=== PATIENT | female | born 1975 | race Caucasian/White ===

== ENCOUNTER 2017-07-10 23:43 | Emergency (ER) | payer MEDICAID ==
[~2017-07-10] VITALS: Ht 160 cm; Wt 77.1 kg
[2017-07-10 23:50] VITALS: BP_SYST 139
[2017-07-11] MEDS ORDERED: DIPHENHYDRAMINE INJ 50 MG/ML VIAL IM ONE
[2017-07-11] MEDS ORDERED: PROCHLORPERAZINE EDISYLATE 10 MG/2 ML VIAL IM ONE
[2017-07-11 01:47] VITALS: BP_SYST 125
== END 2017-07-11 01:54 | disposition home or self-care (01) ==
LOC: SED 23:43
DX: R51 Headache (principal); R11.2 Nausea with vomiting, unspecified; H53.149 Visual discomfort, unspecified
CPT/HCPCS: 70450; 81025; 96372; 99284; J0780; J1200

== ENCOUNTER 2019-05-26 02:56 | Emergency (ER) | payer MEDICAID ==
[~2019-05-26] VITALS: Ht 165.1 cm; Wt 72.6 kg
[2019-05-26 03:00] VITALS: BP_SYST 159
[2019-05-26] MEDS: DEXAMETHASONE SOD PHOSPHATE 10 MG/ML VIAL IM ONE (03:24)
[2019-05-26 03:37] VITALS: BP_SYST 159
== END 2019-05-26 03:37 | disposition home or self-care (01) ==
LOC: SED 02:56
DX: S80.861A Insect bite (nonvenomous), right lower leg, initial encounter (principal); L03.115 Cellulitis of right lower limb; W57.XXXA Bitten or stung by nonvenomous insect and other nonvenomous arthropods, initial encounter; Y93.89 Activity, other specified; Y92.89 Other specified places as the place of occurrence of the external cause; Y99.8 Other external cause status
CPT/HCPCS: 96372; 99283; J1100

== ENCOUNTER 2019-08-11 07:58 | Emergency (ER) | payer MEDICAID ==
[~2019-08-11] VITALS: Ht 165.1 cm; Wt 74.8 kg
[2019-08-11 08:00] VITALS: BP_SYST 120
[2019-08-11] MEDS ORDERED: PROCHLORPERAZINE EDISYLATE 10 MG/2 ML VIAL IM ONE (09:00)
[2019-08-11] MEDS ORDERED: KETOROLAC TROMETHAMINE 60 MG/2 ML VIAL IM ONE (09:00)
[2019-08-11 09:57] VITALS: BP_SYST 119
== END 2019-08-11 09:57 | disposition home or self-care (01) ==
LOC: SED 07:58
DX: G44.209 Tension-type headache, unspecified, not intractable (principal); F41.9 Anxiety disorder, unspecified
CPT/HCPCS: 81025; 82962; 96372; 99283; J0780; J1885

== ENCOUNTER 2019-09-25 00:29 | Emergency (ER) | payer MEDICAID ==
[~2019-09-25] VITALS: Ht 165.1 cm; Wt 73.5 kg
[2019-09-25 00:45] VITALS: BP_SYST 126
--- NOTE | 2019-09-25 00:45 | NUR ---
Patient to ER bed 6 to gown for evaluation. Side rails up. Report received from LUZ MARIA Gee.
--- NOTE | 2019-09-25 00:48 | NUR ---
Patient complains of vaginal bleed intermittently for 3 months. Pt states she was taking control 4 months ago and states she stopped taking it. Pt noticed spotting and has increasing gotten worse over time. Pt is complaining of cramps and states she was anemic 5 years ago. NO other injuries/complaints per patient or noted.
--- NOTE | 2019-09-25 00:58 | NUR ---
ER Dr. Resendiz at bedside examining patient.
--- NOTE | 2019-09-25 01:18 | NUR ---
Patient given written and verbal discharge instructions and verbalizes understanding. ER MD discussed with patient the results and treatment provided. Patient in stable condition. ID arm band removed. Rx of Provera, Motrin and Cipro given. Patient educated on pain management and to follow up with PMD. Pain Scale 0. Opportunity for questions provided and answered. Medication side effect fact sheet provided.
[2019-09-25 01:20] VITALS: BP_SYST 126
== END 2019-09-25 01:18 | disposition home or self-care (01) ==
LOC: SED 00:29
DX: N39.0 Urinary tract infection, site not specified (principal); N93.8 Other specified abnormal uterine and vaginal bleeding
CPT/HCPCS: 81002; 81025; 99283

== ENCOUNTER 2020-05-22 11:28 | Emergency (ER) | payer MEDICAID ==
[~2020-05-22] VITALS: Ht 165.1 cm; Wt 85.3 kg
[2020-05-22 11:31] VITALS: BP_SYST 144
--- NOTE | 2020-05-22 11:36 | NUR ---
Patient triaged and placed in waiting room. VSS and patient appears in no acute distress at this time. Awaiting available bed, and MD notified of need for MSE.
[2020-05-22] MEDS ORDERED: LORazepam 1 MG TABLET PO ONE (14:00)
[2020-05-22] MEDS ORDERED: KETOROLAC TROMETHAMINE 60 MG/2 ML VIAL IM ONE (14:00)
[2020-05-22 14:07] LABS: BILIRUBIN,URINE NEGATIVE (NEGATIVE); CLARITY/URINE CLEAR (CLEAR); COLOR,URINE YELLOW (YELLOW); GLUCOSE,URINE NEGATIVE (NEGATIVE); KETONES,URINE NEGATIVE (NEGATIVE); LEUKOCYTE ESTERASE ,URINE NEGATIVE (NEGATIVE); NITRITE, URINE NEGATIVE (NEGATIVE); PROTEIN URINE NEGATIVE (NEGATIVE); UROBILINOGEN,URINE 0.2 (0.2-1.0)
[2020-05-22 14:24] LABS: BLOOD, URINE TRACE (NEGATIVE)
[2020-05-22 14:27] LABS: BACTERIA,URINE RARE /HPF (None Seen); WBC,URINE 0-3 /HPF (0-3)
--- NOTE | 2020-05-22 14:35 | NUR ---
Patient to ER bed H1 to gown for evaluation. Side rails up.
--- NOTE | 2020-05-22 14:36 | NUR ---
Pt brought by self , A&Ox4 , pt presents to ER with anxiety , headache and insomnia, skin pink and warm, cap refill <3, VSS, respirations even and unlabored.
--- NOTE | 2020-05-22 14:40 | NUR ---
Nicolasa Durham FLOWER [employer]IPPER at bedside speaking with patient
[2020-05-22 15:35] VITALS: BP_SYST 144
--- NOTE | 2020-05-22 15:36 | NUR ---
Patient given written and verbal discharge instructions and verbalizes understanding. ER MD discussed with patient the results and treatment provided. Patient in stable condition. ID arm band removed. Rx of Ativan and Tylenol given. Patient educated on pain management and to follow up with PMD. Pain Scale 2/10 tolerable for patient . Opportunity for questions provided and answered. Medication side effect fact sheet provided.
== END 2020-05-22 15:35 | disposition home or self-care (01) ==
LOC: SED 11:28
DX: R51 Headache (principal); F41.9 Anxiety disorder, unspecified; R03.0 Elevated blood-pressure reading, without diagnosis of hypertension
CPT/HCPCS: 81000; 81025; 93005; 96372; 99284; J1885

== ENCOUNTER 2020-08-18 20:48 | Emergency (ER) | payer MEDICAID ==
[~2020-08-18] VITALS: Ht 165.1 cm; Wt 83.9 kg
[2020-08-18 21:00] VITALS: BP_SYST 162
--- NOTE | 2020-08-18 21:00 | NUR ---
Patient to ER bed 6 to gown for evaluation. Side rails up. Report given to MARILUZ.
--- NOTE | 2020-08-18 21:02 | NUR ---
PT AA AND AMBULATORY C/O VAGINAL BLEEDING FOR THE PAST 2 MONTHS AND PELVIC PAIN 6/10 ON PAIN SCALE. PT REPORTS THAT BLEEDING WILL NOT SUBSIDE AND PAIN IN WORSENING.
--- NOTE | 2020-08-18 21:05 | NUR ---
ER Dr. HOLT at bedside examining patient.
[2020-08-18 21:39] LABS: BASOPHILS # (AUTO) 0.1 K/uL (0.0-0.2); BASOPHILS % (AUTO) 0.7 % (0.0-2.0); EOSINOPHILS # (AUTO) 0.1 K/uL (0.0-0.4); EOSINOPHILS % (AUTO) 0.7 % (0.0-4.0); HEMATOCRIT 38.5 % (36-48); HEMOGLOBIN 12.9 g/dL (12.0-16.0); LYMPHOCYTES # (AUTO) 2.8 K/uL (1.0-5.5); LYMPHOCYTES % (AUTO) 27.9 % (20.5-51.5); MEAN CORPUSCULAR HEMOGLOBIN 30 pg (27-31); MEAN CORPUSCULAR HGB CONC 34 % (32-36); MEAN CORPUSCULAR VOLUME 89 fL (79.0-98.0); MONOCYTES # (AUTO) 0.7 K/uL (0.0-1.0); MONOCYTES % (AUTO) 6.8 % (1.7-9.3); NEUTROPHILS # (AUTO) 6.5 K/uL (1.8-7.7); NEUTROPHILS % (AUTO) 63.9 % (40.0-70.0); PLATELET COUNT (AUTO) 310 K/uL (130-430); RED BLOOD CELL COUNT(AUTO) 4.35 MIL/uL (4.2-6.2); RED CELL DISTRIBUTION WIDTH 16.2 % (9.0-15.0); WHITE BLOOD COUNT (AUTO) 10.1 K/uL (4.8-10.8)
[2020-08-18 21:54] LABS: CALCIUM 8.1 mg/dL (8.4-11.0); CREATININE 0.89 mg/dL (0.55-1.30); POTASSIUM 4.1 mmol/L (3.5-5.1)
[2020-08-18 21:59] LABS: ALBUMIN 3.5 g/dL (3.4-4.8); TOTAL BILIRUBIN 0.2 mg/dL (0.0-1.0)
--- NOTE | 2020-08-18 22:00 | NUR ---
US TECH AT BEDSIDE.
[2020-08-18 22:36] VITALS: BP_SYST 162
--- NOTE | 2020-08-18 22:36 | NUR ---
Patient given written and verbal discharge instructions and verbalizes understanding. ER MD discussed with patient the results and treatment provided. Patient in stable condition. ID arm band removed. Rx of PROVERA given. Patient educated on pain management and to follow up with PMD. Opportunity for questions provided and answered. Medication side effect fact sheet provided.
== END 2020-08-18 22:36 | disposition home or self-care (01) ==
LOC: SED 20:48
DX: N93.8 Other specified abnormal uterine and vaginal bleeding (principal); I10 Essential (primary) hypertension
CPT/HCPCS: 36415; 76830-TC; 76857; 80053; 85025; 99284

== ENCOUNTER 2020-08-31 10:37 | Emergency (ER) | payer MEDICAID ==
[~2020-08-31] VITALS: Ht 165.1 cm; Wt 79.8 kg
[2020-08-31 11:03] VITALS: BP_SYST 110
--- NOTE | 2020-08-31 12:14 | NUR ---
Pt c/o vag bleeding x4 days. +Lower abd pain, lower back pain. Was told by PMD to come to ER for evaluation
--- NOTE | 2020-08-31 12:14 | NUR ---
ER Dr. Ayers examining patient in triage room.
--- NOTE | 2020-08-31 13:06 | NUR ---
Pt A&Ox4, VSS, respirations even and unlabored, cap refill <3.
[2020-08-31 13:15] LABS: BASOPHILS # (AUTO) 0.1 K/uL (0.0-0.2); BASOPHILS % (AUTO) 1.2 % (0.0-2.0); EOSINOPHILS # (AUTO) 0.1 K/uL (0.0-0.4); HEMATOCRIT 39.7 % (36-48); HEMOGLOBIN 13.3 g/dL (12.0-16.0); LYMPHOCYTES # (AUTO) 2.8 K/uL (1.0-5.5); LYMPHOCYTES % (AUTO) 33.1 % (20.5-51.5); MEAN CORPUSCULAR HEMOGLOBIN 30 pg (27-31); MEAN CORPUSCULAR HGB CONC 34 % (32-36); MEAN CORPUSCULAR VOLUME 89 fL (79.0-98.0); MONOCYTES # (AUTO) 0.5 K/uL (0.0-1.0); MONOCYTES % (AUTO) 5.9 % (1.7-9.3); NEUTROPHILS # (AUTO) 5.1 K/uL (1.8-7.7); NEUTROPHILS % (AUTO) 58.8 % (40.0-70.0); PLATELET COUNT (AUTO) 300 K/uL (130-430); RED BLOOD CELL COUNT(AUTO) 4.48 MIL/uL (4.2-6.2); RED CELL DISTRIBUTION WIDTH 16.5 % (9.0-15.0); WHITE BLOOD COUNT (AUTO) 8.6 K/uL (4.8-10.8)
[2020-08-31 14:12] VITALS: BP_SYST 110
--- NOTE | 2020-08-31 14:12 | NUR ---
Patient given written and verbal discharge instructions and verbalizes understanding. ER MD discussed with patient the results and treatment provided. Patient in stable condition. ID arm band removed. Rx of Provera given. Patient educated on pain management and to follow up with PMD. Pain Scale 0/10 . Opportunity for questions provided and answered. Medication side effect fact sheet provided.
== END 2020-08-31 14:12 | disposition home or self-care (01) ==
LOC: SED 10:37
DX: N94.6 Dysmenorrhea, unspecified (principal); I10 Essential (primary) hypertension
CPT/HCPCS: 36415; 81025; 84703; 85025; 99283

== ENCOUNTER 2020-10-27 18:23 | Emergency (ER) | payer MEDICAID ==
[~2020-10-27] VITALS: Ht 165.1 cm; Wt 85.7 kg
[2020-10-27 18:23] VITALS: BP_SYST 155
--- NOTE | 2020-10-27 18:39 | NUR ---
DR. BUCKNER IN TRIAGED EXAMINING PT
[2020-10-27] MEDS ORDERED: IBUPROFEN 600 MG TABLET PO ONE (18:45)
[2020-10-27] MEDS ORDERED: IBUPROFEN 600 MG TABLET ONE (18:47)
--- NOTE | 2020-10-27 19:58 | NUR ---
PT TO [place] [id number]
--- NOTE | 2020-10-27 19:59 | NUR ---
PT AAO AND AMBULATORY REPORTING LEFT MIDDLE FINGER DISCOMFORT. PAIN WAS INITIALLY 8/10 BUT IT HAS IMPROVED SINCE IBOPROFEN WAS ADMINISTERED. PT REPORTS PAIN NOW 5/10 ON PAIN SCALE. PT REPORTS THAT SHE INJURED HER FINGER IN [place] A FEW MONTHS AGO AND NOW SHE IS HAVING DIFFICULTY BENDING DIGIT.
[2020-10-27 20:07] VITALS: BP_SYST 155
--- NOTE | 2020-10-27 20:09 | NUR ---
Patient given written and verbal discharge instructions and verbalizes understanding. DR. SITA PETERSON MD discussed with patient the results and treatment provided. Patient in stable condition. ID arm band removed. Rx of given. Patient educated on pain management and to follow up with PMD. Pain Scale 2/10.Opportunity for questions provided and answered.
== END 2020-10-27 20:09 | disposition home or self-care (01) ==
LOC: SED 18:23
DX: M79.645 Pain in left finger(s) (principal); W26.0XXA Contact with knife, initial encounter; Y93.89 Activity, other specified; Y92.89 Other specified places as the place of occurrence of the external cause; Y99.8 Other external cause status
CPT/HCPCS: 73140-TC; 99283

== ENCOUNTER 2021-07-01 11:58 | Emergency (ER) | payer MEDICAID ==
[~2021-07-01] VITALS: Ht 165.1 cm; Wt 84.8 kg
[2021-07-01 11:59] VITALS: BP_SYST 146
--- NOTE | 2021-07-01 12:00 | NUR ---
Patient to ER bed 7 to gown for evaluation. Side rails up.
--- NOTE | 2021-07-01 12:05 | NUR ---
pt arrives from home w/ /co urinary frequency and burning. reports 5/10, sharp bladder pain
--- NOTE | 2021-07-01 12:10 | NUR ---
ER at bedside examining patient.
[2021-07-01 12:15] LABS: BILIRUBIN,URINE NEGATIVE (NEGATIVE); BLOOD, URINE 3+ (NEGATIVE); CLARITY/URINE TURBID (CLEAR); GLUCOSE,URINE NEGATIVE (NEGATIVE); KETONES,URINE NEGATIVE (NEGATIVE); LEUKOCYTE ESTERASE ,URINE 3+ (NEGATIVE); NITRITE, URINE POSITIVE (NEGATIVE); PH,URINE 6.5 (5.0-8.0); PROTEIN URINE 2+ (NEGATIVE)
[2021-07-01 12:23] LABS: COLOR,URINE AMBER (YELLOW)
[2021-07-01 12:26] LABS: BACTERIA,URINE MANY /HPF (None Seen); WBC,URINE >100 /HPF (0-3)
[2021-07-01] MEDS ORDERED: CEPH250C PO (12:53)
[2021-07-01 12:58] VITALS: BP_SYST 146
--- NOTE | 2021-07-01 12:59 | NUR ---
Patient given written and verbal discharge instructions and verbalizes understanding. ER MD discussed with patient the results and treatment provided. Patient in stable condition. ID arm band removed. Rx of KEFLEX given. Patient educated on pain management and to follow up with PMD. Pain Scale 3/10. Opportunity for questions provided and answered. Medication side effect fact sheet provided.
== END 2021-07-01 12:59 | disposition home or self-care (01) ==
LOC: SED 11:58
DX: N39.0 Urinary tract infection, site not specified (principal); I10 Essential (primary) hypertension; Z79.899 Other long term (current) drug therapy
CPT/HCPCS: 81000; 81025; 87086; 99283

== ENCOUNTER 2021-08-27 15:23 | Emergency (ER) | payer MEDICAID ==
[~2021-08-27] VITALS: Ht 165.1 cm; Wt 86.6 kg
[~2021-08-27 15:23] MED LIST: CEPH250C PO
[2021-08-27 15:33] VITALS: BP_SYST 139
[2021-08-27] MEDS ORDERED: KETOROLAC TROMETHAMINE 30 MG VIAL IM ONE (20:00)
[2021-08-27] MEDS ORDERED: NAPR-1172 PO (21:22)
[2021-08-27 21:30] VITALS: BP_SYST 139
== END 2021-08-27 21:30 | disposition home or self-care (01) ==
LOC: SED 15:23
DX: M25.562 Pain in left knee (principal); I10 Essential (primary) hypertension; Z79.899 Other long term (current) drug therapy
CPT/HCPCS: 73564; 96372; 99283; J1885

== ENCOUNTER 2021-12-08 12:50 | Emergency (ER) | payer MEDICAID, SELFPAY ==
[~2021-12-08] VITALS: Ht 165.1 cm; Wt 81.6 kg
[2021-12-08 12:50] VITALS: BP_SYST 117
[~2021-12-08 12:50] MED LIST changes: +NAPR-1172 PO
--- NOTE | 2021-12-08 12:55 | NUR ---
Patient triaged and placed in waiting room. VSS and patient appears in no acute distress at this time. Accompanied by SELF, awaiting available bed, and MD notified of need for MSE.
--- NOTE | 2021-12-08 13:15 | NUR ---
PT STATES OFF AND ON HEAVY VAGINAL BLEEDING FOR LAST 6 DAYS, CHANGING PAD Q4 HOURS, STATES +CLOTS.
[2021-12-08 15:20] VITALS: BP_SYST 137
--- NOTE | 2021-12-08 15:35 | NUR ---
DR WILKERSON OUT TO TRIAGE ROOM FOR EVALUATION
--- NOTE | 2021-12-08 16:45 | NUR ---
PT ELOPED FROM WAITING ROOM, STATES SHE NO LONGER WANTED TO WAIT.
== END 2021-12-08 16:45 | disposition left against medical advice (07) ==
LOC: SED 12:50
DX: N93.8 Other specified abnormal uterine and vaginal bleeding (principal); I10 Essential (primary) hypertension; Z79.899 Other long term (current) drug therapy
CPT/HCPCS: 99281

== ENCOUNTER 2022-03-11 12:23 | Emergency (ER) | payer MEDICAID ==
[~2022-03-11] VITALS: Ht 165.1 cm; Wt 79.8 kg
[2022-03-11 12:56] VITALS: BP_SYST 146
[2022-03-11 14:05] LABS: BILIRUBIN,URINE NEGATIVE (NEGATIVE); BLOOD, URINE 3+ (NEGATIVE); CLARITY/URINE SL CLOUDY (CLEAR); COLOR,URINE YELLOW (YELLOW); GLUCOSE,URINE NEGATIVE (NEGATIVE); KETONES,URINE NEGATIVE (NEGATIVE); LEUKOCYTE ESTERASE ,URINE NEGATIVE (NEGATIVE); NITRITE, URINE NEGATIVE (NEGATIVE); PROTEIN URINE NEGATIVE (NEGATIVE); UROBILINOGEN,URINE 0.2 (0.2-1.0)
[2022-03-11 14:18] LABS: BACTERIA,URINE FEW /HPF (None Seen); RBC,URINE 50-80 /HPF (0-3); WBC,URINE 0-3 /HPF (0-3)
--- NOTE | 2022-03-11 14:19 | NUR ---
Patient to ER bed 03 to gown for evaluation. Side rails up.
--- NOTE | 2022-03-11 15:09 | NUR ---
Pt in bed #3 coming from home ambulatory with steady gait. Pt is A&Ox4. Skin intact. Pt c/o having vaginal bleeding since and states she saturates about 5 pads a day. Accompanied with abdominal pain 7/ non-radiaitng. No chest pain and no sob. Denies n/v. Connected pt to cardiac specialist. VSS. NKA. No known medical conditions. Bed in lowest position.
--- NOTE | 2022-03-11 15:10 | NUR ---
ER at bedside examining patient.
[2022-03-11 15:49] LABS: BASOPHILS % (AUTO) 0.4 % (0.0-2.0); EOSINOPHILS # (AUTO) 0.1 K/uL (0.0-0.4); EOSINOPHILS % (AUTO) 1.3 % (0.0-4.0); HEMATOCRIT 29.3 % (36-48); HEMOGLOBIN 9.5 g/dL (12.0-16.0); LYMPHOCYTES # (AUTO) 2.1 K/uL (1.0-5.5); LYMPHOCYTES % (AUTO) 36.3 % (20.5-51.5); MEAN CORPUSCULAR HEMOGLOBIN 24 pg (27-31); MEAN CORPUSCULAR HGB CONC 32 % (32-36); MEAN CORPUSCULAR VOLUME 74 fL (79.0-98.0); MONOCYTES # (AUTO) 0.4 K/uL (0.0-1.0); MONOCYTES % (AUTO) 7.1 % (1.7-9.3); NEUTROPHILS # (AUTO) 3.2 K/uL (1.8-7.7); NEUTROPHILS % (AUTO) 54.9 % (40.0-70.0); PLATELET COUNT (AUTO) 295 K/uL (130-430); RED BLOOD CELL COUNT(AUTO) 3.98 MIL/uL (4.2-6.2); RED CELL DISTRIBUTION WIDTH 19.5 % (9.0-15.0); WHITE BLOOD COUNT (AUTO) 5.8 K/uL (4.8-10.8)
[2022-03-11 16:00] LABS: ANION GAP 7 (5-15); CALCIUM 8.7 mg/dL (8.4-11.0); CHLORIDE 105 mmol/L (98-107); CREATININE 0.65 mg/dL (0.55-1.30); GLUCOSE 103 mg/dL (70-99); POTASSIUM 4.1 mmol/L (3.5-5.1); SODIUM SERUM 138 mmol/L (136-145); UREA NITROGEN, BLOOD 12 mg/dL (8-21)
[2022-03-11 16:05] LABS: GFR AFRICAN AMERICAN 126 mL/min (>90)
[2022-03-11 16:06] LABS: ALANINE AMINOTRANSFERASE 13 U/L (12-78); ALBUMIN 3.3 g/dL (3.4-4.8); ASPARTATE AMINOTRANSFERASE 12 U/L (10-37)
[2022-03-11 16:12] LABS: TOTAL BILIRUBIN < 0.1 mg/dL (0.0-1.0)
[2022-03-11] MEDS ORDERED: IBUP-1969 PO (17:01)
[2022-03-11 17:28] VITALS: BP_SYST 138
--- NOTE | 2022-03-11 17:29 | NUR ---
Patient given written and verbal discharge instructions and verbalizes understanding. ER MD discussed with patient the results and treatment provided. Patient in stable condition. ID arm band removed. Patient educated on pain management and to follow up with PMD. Pain Scale . Opportunity for questions provided and answered. Medication side effect fact sheet provided.
== END 2022-03-11 17:28 | disposition home or self-care (01) ==
LOC: SED 12:23
DX: N93.9 Abnormal uterine and vaginal bleeding, unspecified (principal); D64.9 Anemia, unspecified; N92.0 Excessive and frequent menstruation with regular cycle; I10 Essential (primary) hypertension; Z79.899 Other long term (current) drug therapy
CPT/HCPCS: 36415; 80053; 81000; 84703; 85025; 99283

== ENCOUNTER 2023-03-15 08:01 | Emergency (ER) | payer MEDICAID ==
[~2023-03-15] VITALS: Ht 162.6 cm; Wt 72.6 kg
[2023-03-15 08:01] VITALS: BP_SYST 127
[~2023-03-15 08:01] MED LIST changes: +BENZ1LOZ73 PO; +IBUP-1969 PO; +SOM350 PO
[2023-03-15] MEDS ORDERED: KETOROLAC TROMETHAMINE 30 MG VIAL IM ONE (08:15)
[2023-03-15] MEDS ORDERED: IBUP-1969 PO (08:18)
[2023-03-15] MEDS ORDERED: ACET-2634 PO (08:18)
== END 2023-03-15 09:01 | disposition home or self-care (01) ==
LOC: SED 08:01
DX: G56.11 Other lesions of median nerve, right upper limb (principal); M25.531 Pain in right wrist; M79.641 Pain in right hand; I10 Essential (primary) hypertension; Z79.899 Other long term (current) drug therapy
CPT/HCPCS: 99283

== ENCOUNTER 2023-03-17 08:10 | Emergency (ER) | payer MEDICAID ==
[~2023-03-17] VITALS: Ht 165.1 cm; Wt 79.4 kg
[~2023-03-17 08:10] MED LIST changes: +ACET-2634 PO
[2023-03-17 08:18] VITALS: BP_SYST 116
[2023-03-17] MEDS ORDERED: MAG HYDROX/AL HYDROX/SIMETH 30 ML, DICYCLOMINE HCL 20 MG, LIDOCAINE VISCOUS 2% 15ML (PO... PO ONE ×3 (08:30)
[2023-03-17] MEDS ORDERED: KETOROLAC TROMETHAMINE 60 MG/2 ML VIAL IM ONE (08:30)
[2023-03-17 09:02] LABS: BASOPHILS % (AUTO) 0.1 % (0.0-2.0); EOSINOPHILS # (AUTO) 0.1 K/uL (0.0-0.4); EOSINOPHILS % (AUTO) 0.9 % (0.0-4.0); HEMATOCRIT 38.8 % (36-48); HEMOGLOBIN 12.7 g/dL (12.0-16.0); LYMPHOCYTES # (AUTO) 1.2 K/uL (1.0-5.5); LYMPHOCYTES % (AUTO) 14.9 % (20.5-51.5); MEAN CORPUSCULAR HEMOGLOBIN 28 pg (27-31); MEAN CORPUSCULAR HGB CONC 33 % (32-36); MEAN CORPUSCULAR VOLUME 86 fL (79.0-98.0); MONOCYTES # (AUTO) 0.7 K/uL (0.0-1.0); MONOCYTES % (AUTO) 8.5 % (1.7-9.3); NEUTROPHILS % (AUTO) 75.6 % (40.0-70.0); PLATELET COUNT (AUTO) 269 K/uL (130-430); RED BLOOD CELL COUNT(AUTO) 4.51 MIL/uL (4.2-6.2); RED CELL DISTRIBUTION WIDTH 15.7 % (9.0-15.0); WHITE BLOOD COUNT (AUTO) 7.9 K/uL (4.8-10.8)
[2023-03-17 09:13] LABS: CALCIUM 7.2 mg/dL (8.4-11.0); CREATININE 0.58 mg/dL (0.55-1.30)
[2023-03-17 09:17] LABS: ALBUMIN 3.5 g/dL (3.4-4.8); TOTAL BILIRUBIN 0.6 mg/dL (0.0-1.0)
[2023-03-17] MEDS ORDERED: TRAM50TA2 PO (09:34)
[2023-03-17] MEDS ORDERED: FAMO-132 PO (09:34)
== END 2023-03-17 09:46 | disposition home or self-care (01) ==
LOC: SED 08:10
DX: R10.13 Epigastric pain (principal); I10 Essential (primary) hypertension; Z79.899 Other long term (current) drug therapy
CPT/HCPCS: 99283; 80053; 83690; 85025; 36415; 96372; J2001; J1885

== ENCOUNTER 2023-04-16 18:42 | Emergency (ER) | payer MEDICAID ==
[~2023-04-16] VITALS: Ht 165.1 cm; Wt 80.3 kg
[~2023-04-16 18:42] MED LIST changes: +FAMO-132 PO; +TRAM50TA2 PO
[2023-04-16 19:35] VITALS: BP_SYST 130
[2023-04-16] MEDS ORDERED: KETOROLAC TROMETHAMINE 60 MG/2 ML VIAL IM ONE (21:15)
[2023-04-16] MEDS ORDERED: HYDR-3917 PO (21:37)
[2023-04-16] MEDS ORDERED: IBUP-1971 PO (21:37)
[2023-04-16 22:23] VITALS: BP_SYST 128
== END 2023-04-16 22:23 | disposition home or self-care (01) ==
LOC: SED 18:42
DX: I83.91 Asymptomatic varicose veins of right lower extremity (principal); M79.18 Myalgia, other site; I10 Essential (primary) hypertension; Z79.899 Other long term (current) drug therapy
CPT/HCPCS: 99283; 96372; J1885

== ENCOUNTER 2023-05-06 18:17 | Emergency (ER) | payer MEDICAID ==
[~2023-05-06] VITALS: Ht 165.1 cm; Wt 68.0 kg
[~2023-05-06 18:17] MED LIST changes: +HYDR-3917 PO; +IBUP-1971 PO
[2023-05-06 18:47] VITALS: BP_SYST 134
[2023-05-06] MEDS ORDERED: KETOROLAC TROMETHAMINE 60 MG/2 ML VIAL IM ONE (21:00)
[2023-05-06] MEDS ORDERED: IBUP-1971 PO (21:59)
[2023-05-06 22:24] VITALS: BP_SYST 134
== END 2023-05-06 22:24 | disposition home or self-care (01) ==
LOC: SED 18:17
DX: G44.209 Tension-type headache, unspecified, not intractable (principal); I10 Essential (primary) hypertension; Z79.899 Other long term (current) drug therapy
CPT/HCPCS: 99285; 70450; 76376; 81025; 96372; J1885

== ENCOUNTER 2023-10-14 18:27 | Emergency (ER) | payer MEDICAID ==
[~2023-10-14] VITALS: Ht 165.1 cm; Wt 68.0 kg
[2023-10-14 18:52] VITALS: BP_SYST 137; RESP 18; TEMP 98; O2SAT 98
[2023-10-14] MEDS ORDERED: KETOROLAC TROMETHAMINE 30 MG VIAL IM ONE (19:00)
[2023-10-14] MEDS ORDERED: ACET325T53 PO (20:42)
[2023-10-14] MEDS ORDERED: LIDO1ADH22 TP (20:42)
[2023-10-14] MEDS ORDERED: NAPR-688 PO (20:42)
[2023-10-14 21:10] VITALS: BP_SYST 136; PULSE 80; RESP 18; TEMP 98; O2SAT 98
== END 2023-10-14 21:10 | disposition home or self-care (01) ==
LOC: SED 18:27
DX: S39.012A Strain of muscle, fascia and tendon of lower back, initial encounter (principal); S30.0XXA Contusion of lower back and pelvis, initial encounter; S20.212A Contusion of left front wall of thorax, initial encounter; I10 Essential (primary) hypertension; Z79.899 Other long term (current) drug therapy; W01.0XXA Fall on same level from slipping, tripping and stumbling without subsequent striking against object, initial encounter; Y93.89 Activity, other specified; Y92.89 Other specified places as the place of occurrence of the external cause; Y99.8 Other external cause status
CPT/HCPCS: 99284; 71100; 72220; 81025; 96372; J1885

== ENCOUNTER 2024-01-21 20:17 | Emergency (ER) | payer MEDICAID ==
[~2024-01-21] VITALS: Ht 165.1 cm; Wt 78.5 kg
[~2024-01-21 20:17] MED LIST changes: +ACET325T53 PO; +LIDO1ADH22 TP; +NAPR-688 PO
[2024-01-21 20:58] VITALS: BP_SYST 137; PULSE 70; RESP 16; TEMP 98.1; O2SAT 98
[2024-01-21] MEDS: KETOROLAC TROMETHAMINE 30 MG VIAL IM ONE (21:56)
[2024-01-21] MEDS ORDERED: NAPR-690 PO (22:37)
[2024-01-21] MEDS ORDERED: LIDO700A30 TP (22:37)
[2024-01-21] MEDS ORDERED: METH-634 PO (22:37)
[2024-01-21 22:50] VITALS: BP_SYST 135; PULSE 74; RESP 18; TEMP 98.3; O2SAT 98
== END 2024-01-21 22:50 | disposition home or self-care (01) ==
LOC: SED 20:17
DX: M54.31 Sciatica, right side (principal); G89.29 Other chronic pain; M54.50 Low back pain, unspecified; M79.661 Pain in right lower leg; I10 Essential (primary) hypertension; Z79.899 Other long term (current) drug therapy
CPT/HCPCS: 99284; 72100; 73502; 96372; 72170; J1885

== ENCOUNTER 2024-06-03 12:32 | Emergency (ER) | payer MEDICAID ==
[~2024-06-03] VITALS: Ht 165.1 cm; Wt 80.3 kg
[2024-06-03 12:32] VITALS: BP_SYST 164; PULSE 74; RESP 18; TEMP 97.2; O2SAT 98
[~2024-06-03 12:32] MED LIST changes: +LIDO700A30 TP; +METH-634 PO; +NAPR-690 PO
[2024-06-03] MEDS: KETOROLAC TROMETHAMINE 60 MG/2 ML VIAL IM ONE (13:00)
[2024-06-03 13:10] LABS: ERYTHROCYTE SEDIMENTATION RATE 1 MM/HR (0-20)
[2024-06-03 13:12] LABS: BASOPHILS # (AUTO) 0.1 K/uL (0.0-0.2); BASOPHILS % (AUTO) 0.5 % (0.0-2.0); EOSINOPHILS # (AUTO) 0.4 K/uL (0.0-0.4); EOSINOPHILS % (AUTO) 4.5 % (0.0-4.0); HEMATOCRIT 37.9 % (36-48); HEMOGLOBIN 12.8 g/dL (12.0-16.0); LYMPHOCYTES # (AUTO) 2.5 K/uL (1.0-5.5); LYMPHOCYTES % (AUTO) 24.7 % (20.5-51.5); MEAN CORPUSCULAR HEMOGLOBIN 30 pg (27-31); MEAN CORPUSCULAR HGB CONC 34 % (32-36); MEAN CORPUSCULAR VOLUME 87 fL (79.0-98.0); MONOCYTES # (AUTO) 0.6 K/uL (0.0-1.0); MONOCYTES % (AUTO) 5.8 % (1.7-9.3); NEUTROPHILS # (AUTO) 6.4 K/uL (1.8-7.7); NEUTROPHILS % (AUTO) 64.5 % (40.0-70.0); PLATELET COUNT (AUTO) 280 K/uL (130-430); RED BLOOD CELL COUNT(AUTO) 4.36 MIL/uL (4.2-6.2); RED CELL DISTRIBUTION WIDTH 14.4 % (9.0-15.0); WHITE BLOOD COUNT (AUTO) 9.9 K/uL (4.8-10.8)
[2024-06-03 13:16] LABS: SERUM HCG (QUALITATIVE) NEGATIVE (NEGATIVE)
[2024-06-03 13:23] LABS: PROTHROMBIN TIME 10.6 SECS (9.5-12.5)
[2024-06-03 13:45] LABS: CALCIUM 8.4 mg/dL (8.4-11.0); CREATININE 0.58 mg/dL (0.55-1.30); URIC ACID 4.5 mg/dL (2.4-7.0)
[2024-06-03] MEDS ORDERED: HYDR-3917 PO (13:58)
[2024-06-03] MEDS: HYDROcodone/ACETAMIN 10-325 MG TAB PO ONE (14:01)
[2024-06-03 14:15] VITALS: BP_SYST 142; PULSE 73; RESP 18; TEMP 97.2; O2SAT 97
== END 2024-06-03 14:12 | disposition home or self-care (01) ==
LOC: SED 12:32
DX: M13.861 Other specified arthritis, right knee (principal); F41.9 Anxiety disorder, unspecified; I10 Essential (primary) hypertension; Z79.899 Other long term (current) drug therapy; Z79.2 Long term (current) use of antibiotics
CPT/HCPCS: 99284; 80048; 84703; 84550; 85025; 85610; 85651; 85730; 36415; 73560; 81025; 96372; 82397; J1885